=== PATIENT | male | born 1985 | race Two or more races ===

== ENCOUNTER 2020-08-31 16:42 | Emergency (ER) | payer OTHER ==
[~2020-08-31] VITALS: Ht 177.8 cm; Wt 163.3 kg
== END 2020-08-31 21:30 | disposition home or self-care (01) ==
LOC: ER 16:42
DX: M94.0 Chondrocostal junction syndrome [Tietze] (principal)

== ENCOUNTER 2020-09-24 17:56 | Emergency (ER) | payer OTHER ==
[~2020-09-24] VITALS: Ht 177.8 cm; Wt 163.3 kg
== END 2020-09-24 22:26 | disposition home or self-care (01) ==
LOC: ER 17:56
DX: M62.830 Muscle spasm of back (principal)

== ENCOUNTER 2021-02-04 09:47 | Emergency (ER) | payer OTHER ==
[~2021-02-04] VITALS: Ht 175.3 cm; Wt 151.0 kg
[2021-02-04] MEDS ORDERED: ORPHENADRINE C100 MG PO (13:43)
[2021-02-04] MEDS ORDERED: NAPROXEN375 MG PO (13:43)
== END 2021-02-04 12:49 | disposition home or self-care (01) ==
LOC: ER 09:47
DX: M94.0 Chondrocostal junction syndrome [Tietze] (principal)